=== PATIENT | female | born 1950 | race Caucasian/White ===

== ENCOUNTER 2020-02-26 12:46 | Emergency (ER) | payer OTHER ==
[~2020-02-26] VITALS: Ht 175.3 cm; Wt 62.6 kg
[2020-02-26] MEDS ORDERED: ARMOUR THYROID60 M1 PO (13:11)
[2020-02-26] MEDS ORDERED: LORAZEPAM 0.50.5 MG PO (13:12)
[2020-02-26 14:35] VITALS: BP 132/88
== END 2020-02-26 14:35 | disposition home or self-care (01) ==
LOC: ER 12:46
DX: R50.9 Fever, unspecified (principal); J02.9 Acute pharyngitis, unspecified; R05 Cough; Z20.828 Contact with and (suspected) exposure to other viral communicable diseases; Z79.899 Other long term (current) drug therapy